=== PATIENT | female | born 1950 | race African-American/Black ===

== ENCOUNTER → 2018-12-20 08:55 | Outpatient (CLI) | payer OTHER | END | disposition home or self-care (01) | LOC: D.US 08:55 → D.RAD 09:00 → D.US 09:00 | DX: R92.8 Other abnormal and inconclusive findings on diagnostic imaging of breast (principal) ==

== ENCOUNTER 2020-06-21 11:48 | Day surgery (SDC) | payer MEDICARE ==
[~2020-06-21] VITALS: Ht 167.6 cm; Wt 111.8 kg
[2020-06-21 12:46] LABS: BASOPHILS 0.2 % (0-2); EOSINOPHILS 3.2 % (0-7); HEMATOCRIT 36.5 % (36.0-48.0); HEMOGLOBIN 11.6 g/dL (12-16); IMMATURE GRANULOCYTES 0.4 % (0-5); LYMPHOCYTES 19.9 % (15-50); MCH 29.9 pg (26.0-34.0); MCHC 31.8 g/dL (31.0-37.0); MCV 94.1 fL (80.0-100.0); MEAN PLATELET VOLUME 9.8 fL (7.4-10.4); MONOCYTES 7.4 % (2-11); NEUTROPHILS 68.9 % (40-80); PLATELET COUNT 224 10x3/uL (130-400); RBC 3.88 10x6/uL (4.00-5.40); RDW 13.9 % (11.5-14.5)
[2020-06-21] MEDS ORDERED: PACERONE200 MG PO (12:58)
[2020-06-21] MEDS ORDERED: ALBUTEROL SULF8.5 GM INH (12:59)
[2020-06-21] MEDS ORDERED: MAG-OX 400 MG400 MG PO (12:59)
[2020-06-21] MEDS ORDERED: CLARITIN 10 MG10 MG PO (13:00)
[2020-06-21] MEDS ORDERED: ANORO ELLIPTA1 EACH INH (13:00)
[2020-06-21] MEDS ORDERED: TESSALON PERLE100 MG PO (13:01)
[2020-06-21] MEDS ORDERED: ATARAX 25 MG TA25 MG PO ×2 (13:02)
[2020-06-21] MEDS ORDERED: CARAFATE1 G PO (13:03)
[2020-06-21] MEDS ORDERED: PRAVASTATIN SOD10 MG PO (13:03)
[2020-06-21] MEDS ORDERED: GLUCOPHAGE500 MG PO (13:03)
[2020-06-21 13:04] LABS: ANION GAP 12.2 mmol/L (8-16); CALCIUM 9.8 mg/dL (8.5-10.1); CARBON DIOXIDE 26.8 mmol/L (21.0-32.0); CREATININE - SERUM 1.1 mg/dL (0.6-1.3)
[2020-06-21] MEDS ORDERED: PROAIR HFA8.5 G1 INH (13:04)
[2020-06-21] MEDS ORDERED: LASIX40 MG PO (13:04)
[2020-06-21 13:05] LABS: INR 1.02 (0.85-1.17); PROTIME 13.4 SECONDS (11.6-15.0)
[2020-06-21] MEDS ORDERED: NEURONTIN 300300 MG PO (13:05)
[2020-06-21] MEDS ORDERED: OMEPRAZOLE40 MG PO (13:05)
[2020-06-21] MEDS ORDERED: KLOR-CON M2020 MEQ PO (13:05)
[2020-06-21] MEDS ORDERED: LISINOPRIL20 MG PO (13:06)
[2020-06-21] MEDS ORDERED: CARDURA1 MG PO (13:06)
[2020-06-21] MEDS ORDERED: ASPIRIN81 MG PO (13:07)
[2020-06-21] MEDS ORDERED: ELIQUIS5 MG PO (13:07)
[2020-06-21 13:09] VITALS: BP 181/70; Ht 167.6 cm; Wt 111.8 kg
--- NOTE | 2020-06-22 14:37 | OP ---
PATIENT NAME: VANE TORREZ MEDICAL RECORD: [id number] :54 LOCATION:[facility] ADMISSION DATE: SURGEON: THONY RAMIREZ DO DATE OF OPERATION: 06/21/2020 PROCEDURE: Colonoscopy with polypectomy. INDICATIONS FOR PROCEDURE: Elevated CEA level and history of colon polyps as well as a history of low-grade endocrine carcinoid tumor. SCOPE: Olympus video pediatric colonoscope. MEDICATIONS: Propofol 350 mg IV per anesthesia. WITHDRAWAL TIME: 10 minutes. ESTIMATED BLOOD LOSS: Minimal. COMPLICATIONS: None. FINDINGS AND DESCRIPTION OF PROCEDURE: Informed consent was given. The patient was made comfortable with the above medication. After reaching an adequate level of sedation by slow IV push, the patient was placed on her left side. A digital rectal examination was performed and was normal. The endoscope was then advanced under direct visualization through the rectum to the cecum, confirmed by the presence of the appendiceal orifice and ileocecal valve. The endoscope was slowly withdrawn and mucosa was carefully examined. The prep quality was good. There were 2 polyps visualized on today's examination. They were both located in the descending colon. They were both benign appearing and sessile and ranged in size from 2-4 mm in diameter. They were both removed using hot forceps. Retroflexion was performed in the rectum with visualization of grade I internal hemorrhoids without bleeding. The endoscope was withdrawn from the patient. The patient tolerated the procedure well and there were no complications. IMPRESSION: 1. Two benign appearing polyps as described above, removed using hot forceps. 2. Grade I internal hemorrhoids without bleeding. PLAN AND RECOMMENDATIONS: 1. Discharge home when recovery parameters are met. 2. Follow up biopsy specimen results. 3. High fiber diet. 4. Continue current medications. 5. Recall colonoscopy in 5 years. TRANSINT:[id number] Voice Confirmation ID: [id number] DOCUMENT ID: [id number] OPERATIVE REPORT [id number] VANE TORREZ THONY RAMIREZ DO at 1437 CC: [id number] DICTATION DATE: 06/21/20 1519 [facility] CUTTER: 06/22/20 0046 [facility] 06/21/20 [place] [address]
== END 2020-06-21 16:35 | disposition home or self-care (01) ==
LOC: D.OPS 11:48
PROVIDERS: ATTEND Internal Medicine Gastroenterology
DX: R97.0 Elevated carcinoembryonic antigen [CEA] (principal); Z86.010 Personal history of colon polyps; K64.0 First degree hemorrhoids; K63.5 Polyp of colon